=== PATIENT | male | born 1960 | race Caucasian/White ===

== ENCOUNTER 2016-10-09 07:04 | Day surgery (SDC) | payer MEDICARE ==
[2016-10-09 07:30] VITALS: BMI 33.7
[2016-10-09] MEDS ORDERED: Propofol 10 mg/ml Inj (20 ML) ONE (08:18)
--- NOTE | 2016-10-09 08:19 | CP.SDSHP ---
Same Day Surgery H & P - History Proposed Procedure: EGD Pre-Op Diagnosis: epigastric pain. heartburn refractory to therapy - Previous Medical/Surgical History Cardiac: Other (hypercholesterolemia, Depression) Misc: Other (depression) Previous Surgical History: Amputation of Right third distal phalynx - Allergies Allergies: Allergies No Known Allergies Allergy (Verified 10/09/16 07:29) - Physical Exam Vital Signs: Vital Signs 10/09/16 07:38 Temperature 97.3 F L Pulse Rate 66 Respiratory 17 Rate Blood Pressure 119/80 O2 Sat by Pulse 99 Oximetry Mental Status: Alert & Oriented x3 Neuro: WNL Heart: WNL Lungs: WNL GI: WNL - Impression Impression: epigastric pain. heartburn in spite of Rx Pt. Evaluated Today:Candidate for Anesthesia & Procedure: Yes - Date & Time Date: 10/09/16 Time: 08:19 Short Stay Discharge - Short Stay Discharge Admitting Diagnosis/Reason for Visit: HEARTBURN, EPIGASTRIC PAIN, CHANGE IN BOWEL HABIT Disposition: HOME/ ROUTINE
[2016-10-09] MEDS ORDERED: Pantoprazole 40 mg EC Tab PO STA (08:25)
[2016-10-09 08:48] VITALS: TEMP 97.8
[2016-10-09 08:59] VITALS: O2SAT 98
[2016-10-09 09:33] VITALS: RESP 18
[2016-10-09 09:45] VITALS: BP 116/74; PULSE 60
== END 2016-10-09 09:42 | disposition home or self-care (01) ==
LOC: C.ENDO 07:04
PROVIDERS: ATTEND Internal Medicine Gastroenterology
DX: K29.30 Chronic superficial gastritis without bleeding (principal); R12 Heartburn; K44.9 Diaphragmatic hernia without obstruction or gangrene; K25.9 Gastric ulcer, unspecified as acute or chronic, without hemorrhage or perforation
CPT/HCPCS: 43239; 88305; 88342; J2001; J2704; J3010